=== PATIENT | female | born 1965 | race Caucasian/White ===

== ENCOUNTER 2016-10-21 14:50 | Emergency (ER) | payer OTHER ==
[2016-10-21 15:20] VITALS: BP 122/81
--- NOTE | 2016-10-21 16:37 | UC ---
Ear Complaint HPI - HPI Summary HPI Summary: mild right ear pain and decreased hearing x days hx cerumen impaction no hx ear surgery - History of Current Complaint Chief Complaint: UCEar Stated Complaint: RT EAR PLUGGED Time Seen by Provider: 10/21/16 16:36 Hx Obtained From: Patient Hx Last Menstrual Period: CURRENT Onset/Duration: Gradual Onset, Lasting Days Severity Initially: Mild Severity Currently: Mild Pain Intensity: 1 Pain Scale Used: 0-10 Numeric Associated Signs/Symptoms: Positive: Hearing Loss - Allergies/Home Medications Allergies/Adverse Reactions: Allergies Allergy/AdvReac Type Severity Reaction Status Date / Time No Known Allergies Allergy Verified 10/21/16 15:20 Home Medications: Home Medications Diltiazem HCl Coated Beads [Cartia Xt] 180 mg PO DAILY 10/21/16 [History Confirmed 10/21/16] Triamterene [Dyrenium] 50 mg PO DAILY 10/21/16 [History Confirmed 10/21/16] PMH/Surg Hx/FS Hx/Imm Hx Previously Healthy: Yes Endocrine History: Diabetes - Surgical History Surgical History: None - Family History Known Family History: Positive: Hypertension, Diabetes - Social History Alcohol Use: Occasionally Substance Use Type: None Smoking Status (MU): Never Smoked Tobacco Review of Systems Constitutional: Negative Skin: Negative Eyes: Negative ENT: Ear Ache Respiratory: Negative Cardiovascular: Negative Gastrointestinal: Negative Genitourinary: Negative Motor: Negative Neurovascular: Negative Musculoskeletal: Negative Neurological: Negative Psychological: Negative All Other Systems Reviewed And Are Negative: Yes Physical Exam Triage Information Reviewed: Yes Appearance: Well-Appearing, No Pain Distress, Well-Nourished Vital Signs: Initial Vital Signs Temp 97 F 10/21/16 15:13 Pulse 81 10/21/16 15:13 Resp 20 10/21/16 15:13 BP 122/81 10/21/16 15:13 Vital Signs Reviewed: Yes Eyes: Positive: Conjunctiva Clear ENT: Positive: TMs normal - left shira;/right unable to vis due to cerumen. Negative: Normal ENT inspection, Hearing grossly normal, Nasal congestion, Nasal drainage Neck: Positive: Supple, Nontender, No Lymphadenopathy Respiratory: Positive: Lungs clear, Normal breath sounds, No respiratory distress Cardiovascular: Positive: RRR Musculoskeletal: Positive: ROM Intact, No Edema Neurological Exam: Normal Neurological: Positive: Alert Psychological Exam: Normal Skin Exam: Normal Ear Complaint Course/Dx - Course Course Of Treatment: TM normal after flush - Differential Dx/Diagnosis Provider Diagnoses: right cerumen impaction Discharge - Discharge Plan Condition: Stable Disposition: HOME Patient Education Materials: Cerumen Impaction (ED) Referrals: Carlyn Nassar MD [Primary Care Provider] - If Needed
== END 2016-10-21 17:15 | disposition home or self-care (01) ==
LOC: UCCORT 14:50
DX: H61.21 Impacted cerumen, right ear (principal); E11.9 Type 2 diabetes mellitus without complications
CPT/HCPCS: 99212; G0463